=== PATIENT | female | born 2000 | race Caucasian/White ===

== ENCOUNTER 2022-02-10 01:08 | Inpatient (IN) | payer SELFPAY ==
[~2022-02-10] VITALS: Ht 154.9 cm; Wt 65.3 kg
[2022-02-10] MEDS ORDERED: MORPHINE SULFATE 5 MG/ML VIAL IVP PRN ×2 (02:05→18:45)
[2022-02-10] MEDS ORDERED: AMPICILLIN 2,000 MG in NACL 0.9% MINI-BAG PLUS 100 ML IV ONE (02:05)
[2022-02-10] MEDS ORDERED: OXYTOCIN 20 UNITS in LACTATED RINGERS 1,000 ML IV SCH ×2 (02:05→18:45)
[2022-02-10] MEDS ORDERED: METHYLERGONOVINE 0.2 MG/ML AMP IM PRN ×3 (02:05→20:05)
[2022-02-10] MEDS ORDERED: CARBOPROST 250 MCG/ML AMP IM PRN (02:05)
[2022-02-10] MEDS ORDERED: ONDANSETRON 4 MG/2 ML VIAL IVP PRN ×2 (02:05→18:45)
[2022-02-10 02:36] LABS: BASOPHILS % (AUTO) 0.1 % (0.0-2.0); EOSINOPHILS % (AUTO) 0.3 % (0.0-4.0); HEMATOCRIT 40.2 % (36-48); HEMOGLOBIN 13.2 g/dL (12.0-16.0); LYMPHOCYTES # (AUTO) 1.6 K/uL (2.5-16.5); LYMPHOCYTES % (AUTO) 13.4 % (20.5-51.1); MEAN CORPUSCULAR HEMOGLOBIN 28 pg (27-31); MEAN CORPUSCULAR HGB CONC 33 g/dL (33-37); MEAN CORPUSCULAR VOLUME 84.8 fL (80-94); MONOCYTES # (AUTO) 0.8 K/uL (0.8-1.0); NEUTROPHILS # (AUTO) 9.4 K/uL (1.8-7.7); NEUTROPHILS % (AUTO) 79.2 % (42.2-75.2); PLATELET COUNT (AUTO) 306 K/uL (140-450); RED BLOOD CELL COUNT(AUTO) 4.74 MIL/uL (4.20-5.40); RED CELL DISTRIBUTION WIDTH 13.6 % (11.6-13.7); WHITE BLOOD COUNT (AUTO) 11.8 K/uL (4.5-11.0)
[2022-02-10 02:50] LABS: APPEARANCE,URINE CLEAR (CLEAR); BILIRUBIN,URINE 1+ (NEGATIVE); BLOOD, URINE 3+ (NEGATIVE); COLOR,URINE YELLOW (YELLOW); LEUKOCYTE ESTERASE ,URINE 2+ (NEGATIVE); NITRITE, URINE NEGATIVE (NEGATIVE); UGLUCOSE NEGATIVE (NEGATIVE)
[2022-02-10 02:58] LABS: RBC,URINE 20-50 /HPF (0-5)
[2022-02-10] MEDS ORDERED: AMPICILLIN 2,000 MG VIAL ONE (03:01)
[2022-02-10] MEDS: LACTATED RINGERS 1,000 ML IV SCH ×4 (03:04→14:33)
[2022-02-10 03:06] LABS: BARBITURATE, URINE NEGATIVE ng/ml (NEG <=200); BENZODIAZEPINE, URINE NEGATIVE ng/mL (NEG <=200); CANNABINOID, URINE NEGATIVE ng/mL (NEG <=50); COCAINE, URINE NEGATIVE ng/mL (NEG <=300); OPIATE, URINE NEGATIVE ng/mL (NEG <=2000); PHENCYCLIDINE SCREEN,URINE NEGATIVE ng/mL (NEG <=25)
[2022-02-10] MEDS ORDERED: MORPHINE SULFATE 10 MG/ML VIAL ONE ×2 (03:17→07:48)
[2022-02-10 03:20] LABS: PROTHROMBIN TIME 9.3 secs (10.8-13.4)
[2022-02-10 03:21] LABS: ALBUMIN 2.8 g/dL (3.4-5.0); ANION GAP 13.5 (8-16); CARBON DIOXIDE 24.2 mmol/L (21-32); CREATININE 0.6 mg/dL (0.6-1.3); POTASSIUM 3.7 mmol/L (3.5-5.1); TOTAL BILIRUBIN 0.7 mg/dL (0.0-1.0)
[2022-02-10] MEDS ORDERED: PNV91TAB8 PO (04:15)
[2022-02-10 04:16] VITALS: BP 135/96
[2022-02-10] MEDS ORDERED: AMPICILLIN 1,000 MG VIAL ONE ×3 (06:48→15:00)
[2022-02-10] MEDS: AMPICILLIN 1,000 MG in NACL 0.9% MINI-BAG PLUS 50 ML IV SCH ×3 (06:54→15:07)
--- NOTE | 2022-02-10 09:07 | NUR ---
PATIENT HAS BEEN SCREENED AND CATEGORIZED LOW NUTRITION RISK. PATIENT WILL BE SEEN WITHIN 7 DAYS OF ADMISSION. 02/17/22 REVIEWED BY WENDY NUNEZ RD
[2022-02-10] MEDS ORDERED: fentaNYL citrate 0.05 MG/ML VIAL ONE (09:28)
[2022-02-10] MEDS ORDERED: ROPIVACAINE 0.2%/NS PREMIX 200 ML EPI ONE (09:28)
[2022-02-10] MEDS ORDERED: OXYTOCIN 20 UNITS/LR PREMIX 1,000 ML IV ONE (10:17)
[2022-02-10] MEDS ORDERED: LACTATED RINGERS 1,000 ML IV SCH (18:45)
[2022-02-10] MEDS ORDERED: SIMETHICONE 80 MG TAB.CHEW PO PRN (20:05)
[2022-02-10] MEDS ORDERED: IBUPROFEN 800 MG TAB PO PRN (20:05)
[2022-02-10] MEDS ORDERED: bisacodyL 5 MG TABEC PO PRN (20:05)
[2022-02-10] MEDS ORDERED: OXYTOCIN 10 UNITS/ML VIAL IM PRN (20:05)
[2022-02-10] MEDS ORDERED: IBUPROFEN 600 MG TAB PO PRN (20:05)
[2022-02-10] MEDS ORDERED: BENZOCAINE/MENTHOL 20%-0.5% 60 GM CAN TP PRN (20:05)
[2022-02-10] MEDS ORDERED: DOCUSATE SODIUM 100 MG GELCAP PO PRN (20:05)
[2022-02-10] MEDS ORDERED: HYDROcodone/APAP 5/325 MG 1 TAB TAB PO PRN ×2 (20:05)
[2022-02-10] MEDS ORDERED: MEASLES, MUMPS, AND RUBELLA 1 VIAL SQVAC ONE (20:05)
[2022-02-10] MEDS ORDERED: METHYLERGONOVINE 0.2 MG TAB PO PRN (20:05)
[2022-02-11 09:04] LABS: HEMATOCRIT 31.5 % (36-48); HEMOGLOBIN 10.2 g/dL (12.0-16.0)
[2022-02-12] MEDS ORDERED: MEASLES, MUMPS, AND RUBELLA 1 VIAL SQVAC ONE (05:53)
== END 2022-02-12 12:20 | disposition home or self-care (01) | DRG 807 ==
LOC: MFCC 01:08 → OBSVTOIN 01:57 → MFCC 02-11 00:35
PROVIDERS: ADMIT Obstetrics & Gynecology; ATTEND Obstetrics & Gynecology
PROC: 10D07Z6 Extraction of Products of Conception, Vacuum, Via Natural or Artificial Opening (ICD-10-PCS; principal; 2022-02-10)
PROC: 0KQM0ZZ Repair Perineum Muscle, Open Approach (ICD-10-PCS; 2022-02-10)
PROC: 3E033VJ Introduction of Other Hormone into Peripheral Vein, Percutaneous Approach (ICD-10-PCS; 2022-02-10)
PROC: 3E0R3BZ Introduction of Anesthetic Agent into Spinal Canal, Percutaneous Approach (ICD-10-PCS; 2022-02-10)
PROC: 00HU33Z Insertion of Infusion Device into Spinal Canal, Percutaneous Approach (ICD-10-PCS; 2022-02-10)
DX: O76 Abnormality in fetal heart rate and rhythm complicating labor and delivery (principal); Z37.0 Single live birth; O70.1 Second degree perineal laceration during delivery; R82.71 Bacteriuria; Z20.822 Contact with and (suspected) exposure to COVID-19; Z3A.38 38 weeks gestation of pregnancy
CPT/HCPCS: 36415; 80053; 80305; 81001; 85018; 85025; 85610; 85730; 86592; 86762; 86886; 86900; 86901; 87086; 87340; 87653-90; 90707; J0290; J2270; J2405; J2590; J2795; J3010; J7120